=== PATIENT | female | born 1935 | race Caucasian/White ===

== ENCOUNTER 2016-10-16 14:39 | Observation (INO) | payer MEDICARE, OTHER ==
[2016-10-16 15:52] LABS: Troponin I 0.02 ng/mL (<0.04)
[2016-10-16 15:54] LABS: B Type Natriuretic Peptide 447 pg/mL
[2016-10-16 15:58] LABS: Ammonia 43 mol/L (16-53); TSH (Thyroid Stimulating Horm) 6.78 mcIU/mL (0.34-5.60)
[2016-10-16 15:59] LABS: Albumin 3.7 g/dL (3.2-5.2); BUN/Creatinine Ratio 28.3 (8-20); EGFR African American 33.9 (>60); EGFR Non-African American 26.3 (>60); Globulin 2.7 g/dL (2-4); Magnesium 2.4 mg/dL (1.9-2.7); Total Bilirubin 0.3 mg/dL (0.2-1.0); Total Protein 6.4 g/dL (6.4-8.9)
[2016-10-16] MEDS ORDERED: NS 0.9% 1000 ML* 1,000 ML IV ONE (16:00)
--- NOTE | 2016-10-16 16:02 | RAD ---
HISTORY: Syncope COMPARISONS: December 05, 2012 VIEWS: 2: Frontal and lateral views of the chest. FINDINGS: CARDIOMEDIASTINAL SILHOUETTE: The cardiomediastinal silhouette is normal. CASTRO: The castro are normal. PLEURA: The costophrenic angles are sharp. No pleural abnormalities are noted. LUNG PARENCHYMA: The lungs are clear. ABDOMEN: The upper abdomen is clear. There is no subphrenic gas. BONES AND SOFT TISSUES: Degenerative changes are noted along the spine. OTHER: A right-sided pacemaker is noted IMPRESSION: NO ACTIVE CARDIOPULMONARY DISEASE.
[2016-10-16 16:19] LABS: Hematocrit 38 % (35-47); Hemoglobin 12.2 g/dl (12.0-16.0); Mean Corpuscular HGB Conc 33 g/dl (31-36); Mean Corpuscular Hemoglobin 28 pg (27-31); Mean Corpuscular Volume 87 fL (80-97); Mean Platelet Volume 12 um3 (7.4-10.4); Red Blood Count 4.34 10^6/ul (4.0-5.4); Red Cell Distribution Width 15 % (10.5-15); White Blood Count 7.5 10^3/ul (3.5-10.8)
[2016-10-16 16:49] LABS: Potassium 5.2 mmol/L (3.5-5.0)
[2016-10-16 16:52] LABS: Urine Bacteria Absent (Absent); Urine Bilirubin Negative (Negative); Urine Glucose Negative (Negative); Urine Nitrite Negative (Negative)
--- NOTE | 2016-10-16 16:55 | RAD ---
INDICATION: Syncope. COMPARISON: There are no prior studies available for comparison. TECHNIQUE: Contiguous axial sections of the brain were obtained from the skull base to the vertex without contrast. FINDINGS: The ventricles, cisterns and sulci are enlarged consistent with diffuse atrophy. No significant focal abnormality or mass effect is seen. There is no evidence for hemorrhage. No significant focal osseous abnormality is seen. The visualized portion of the paranasal sinuses and mastoid air cells appear clear. IMPRESSION: NO EVIDENCE FOR ACUTE INTRACRANIAL ABNORMALITY.
[2016-10-16] MEDS ORDERED: CMCS: Melatonin (NF) 3 MG TAB PO PRN (18:21)
[2016-10-16] MEDS ORDERED: NS 0.9% 1000 ML* 1,000 ML IV SCH (18:45)
[2016-10-16 19:33] LABS: Free T3 2.4 pg/mL (2.5-3.9)
[2016-10-16 19:34] LABS: Free T4 0.74 ng/dL (0.61-1.12)
[2016-10-16] MEDS: rOPINIRole TAB* 1 MG PO SCH (21:31)
[2016-10-16] MEDS: Metoprolol Tartrate TAB* 25 MG PO SCH (21:32)
[2016-10-16] MEDS: Heparin VIAL(*) 5000 UNITS/ML VIAL (FIVE THOUSAND) SUBCUT SCH (21:33)
--- NOTE | 2016-10-16 21:36 | HP ---
HISTORY AND PHYSICAL:* ADDENDUM: Mrs. Tsai is an 81-year-old female with history of chronic renal insufficiency, status post pacemaker placement who presented to the hospital after a syncopal episode at her doctor's office. The patient is going to be placed on overnight observation. The patient also had significant orthostatic hypotension at admission. She is going to be placed on intravenous fluids and her blood pressure medications are going to be adjusted. For further details of the patient's presentation and plan, please history and physical dictated by Bailey Rodriguez on 10/16/16 with which I agree. [id number]/CPS #: [id number] MTDD
--- NOTE | 2016-10-16 22:09 | HP ---
ATTENDING PHYSICIAN ADDENDUM NOW INCLUDED ON THIS REPORT CC: Jason Del Rio DO * HISTORY AND PHYSICAL: DATE OF ADMISSION: 10/16/16 PRIMARY CARE PROVIDER: Jason Del Rio DO ATTENDING PHYSICIAN: Alexandra Pope MD *(dictated by Lacho Bates NP). CHIEF COMPLAINT: "I fainted." HISTORY OF PRESENT ILLNESS: Ms. Tsai is an 81-year-old female with past medical history significant for CAD, hypertension, GERD, chronic kidney disease , restless leg syndrome, lymphoma, lymphedema, and history of syncope, status post pacemaker placement, who reports that she has passed out each day for the last 4 days and she has been passing out intermittently over the last few months. The patient states that she gets a funny felling and then this turns into a dizziness, she tries to sit down as soon as possible. She states this is similar to prior to having her pacemaker placed in 2016. The patient denies any fever, chills, chest pain, cough, shortness of breath, nausea, vomiting, diarrhea. The patient denies any urinary symptoms. The patient reports a right anterior cervical lymph node enlargement. She states that it has decreased in size since she was given antibiotics a couple of months ago. Ms. Tsai reports that she was at Dr. Del Rio's office today to establish care after recently moving to the area from [place]. She reports that she passed out in the doctors office today. There was also concern of possible ST elevation on her EKG, but she is atrial paced. It is to note that the patient reports ambulating a few feet prior to getting lightheaded, pale, shortness of breath, and fainting. Due to the patient passing out while in her primary care provider's office and the possibility of ST elevation on her EKG, she was sent to the emergency room for further evaluation of her symptoms. While in the emergency room, the patient had orthostatic vital signs and was found to be orthostatic. The patient received a liter of normal saline. She had labs that were significant for a potassium of 5.2, creatinine 1.84, BUN 52. The patient had a TSH of 6.78. She had EKG that shows an A-paced rhythm. She had a troponin of 0.02. The patient had a chest x-ray showing no active cardiopulmonary disease and a head CT showing no acute intracranial abnormalities. The hospitalists were asked to evaluate the patient for admission. PAST MEDICAL HISTORY: 1. Overactive bladder. 2. Coronary artery disease. 3. Hypertension. 4. GERD. 5. Chronic kidney disease, stage 3. 6. Restless leg syndrome. 7. Lymphoma. 8. Syncope. 9. History of lymphedema. PAST SURGICAL HISTORY: 1. Status post pacemaker insertion x2 in 2016. 2. Status post bladder surgery many years ago. HOME MEDICATIONS: Include: 1. Metoprolol tartrate 25 mg oral twice daily. 2. Milk of magnesia 30 mL oral daily as needed for constipation. 3. Ergocalciferol 50,000 units oral weekly. 4. ReQuip 2 mg oral twice daily. 5. Paricalcitol 1 mcg oral on Wednesdays. 6. Protonix 40 mg oral daily. 7. Oxybutynin XL 10 mg oral every morning. 8. Effexor ER 150 mg oral every morning. 9. Atorvastatin 20 mg oral every evening. 10. Percocet 10/325 one tablet oral every 6 hours as needed for pain. 11. Multivitamin 1 tablet oral daily. 12. Melatonin 6 mg oral daily at bedtime as needed for insomnia. 13. Magnesium oxide 500 mg oral every morning. 14. Aspirin 81 mg oral daily. 15. Amlodipine 5 mg oral daily. ALLERGIES: PENICILLIN, SULFA. FAMILY HISTORY: The patient's mother passed in her 80s from heart disease, also had a history of diabetes mellitus. The patient had a brother who passed of an unknown cancer and a sister with a history of breast cancer. SOCIAL HISTORY: The patient denies alcohol, tobacco, or recreational drug use. She recently moved to the area from [place] to be close to her children. She is retired. Her daughter, Jamee Kinney, will be her surrogate decision maker in the event she is unable to make decisions for herself. REVIEW OF SYSTEMS: I performed a 14-point review of systems. All the pertinent positives and negatives are mentioned in the history of present illness. Remaining review of systems are negative. PHYSICAL EXAMINATION GENERAL APPEARANCE: The patient is alert, pleasant, appears to be in no acute distress. VITAL SIGNS: Temperature 97.4, heart rate 60, respiratory rate 14, O2 sat 97% on room air, blood pressure 146/92. HEENT: Normocephalic, atraumatic. Pupils are equal and reactive to light. Extraocular movements are intact. The patient has a 2 to 3-cm enlarged lymph node in the right anterior neck cervical neck chain. RESPIRATORY: There is no accessory muscle use and lungs are clear to auscultation bilaterally. CARDIOVASCULAR: Regular rate and rhythm. S1 and S2 present. There are no murmurs, rubs, or gallops. ABDOMEN: Soft, nontender, nondistended. There are bowel sounds present x4. EXTREMITIES: There is no lower extremity edema. DP and PT pulses are 2+ and symmetric. MUSCULOSKELETAL: There is no clubbing or cyanosis noted. The patient exhibits good strength in all extremities. NEUROLOGIC: The patient is alert and oriented x4. Cranial nerves II through XII are grossly intact. PSYCHOLOGICAL: The patient is calm and cooperative. SKIN: There are no rashes or abnormalities seen. DIAGNOSTIC STUDIES/LAB DATA: Sodium 137, potassium 5.2, chloride 99, CO2 32, BUN 52, creatinine 1.84, glucose 84. White blood cell count 7.5, hemoglobin 12.2, hematocrit 38, and platelet count 161,000. Troponin 0.02. BNP 447. TSH 6.78. Magnesium 2.24. EKG shows A-paced rhythm and a rate of 60. There are no previous EKGs for comparison. 1. Chest x-ray from today. Radiologist's impression: No active cardiopulmonary disease. 2. Brain CT from today. No acute intracranial abnormalities. IMPRESSION: Ms. Tsai is an 81-year-old female with past medical history significant for overactive bladder, coronary artery disease, hypertension, gastroesophageal reflux disease, chronic kidney disease, restless leg syndrome, lymphoma, syncope, and lymphedema, who presents to the emergency room after a syncopal episode at her primary care doctor's office today. She will be admitted as an observation for syncope. ASSESSMENT: 1. Syncope. I suspect this is secondary to orthostatic vital signs. We will hold the patient's amlodipine and decrease her metoprolol to 12.5 twice daily. We will recheck orthostatic vital signs in the morning after she receives a total of 2 L of IV fluids. We should consider starting the patient on Florinef if she continues to be orthostatic. We will ask Cardiology to interrogate the patient's pacemaker in the morning. 2. Hyperkalemia. We will recheck the patient's labs in the morning; for now, we will just let her potassium float down on its own. 3. Hypertension. We will hold the patient's amlodipine, but continue her metoprolol at a lower dose. 4. Coronary artery disease. We will continue the patient on her aspirin, statin, metoprolol. She has been set up with a followup appointment with Dr. Del Rio's office for Dr. Johns in a week. 5. Overactive bladder. The patient will be continued on her home oxybutynin. 6. Restless leg syndrome. The patient will be continued on her home ReQuip. 7. Chronic kidney disease. The patient has been set up with her primary care provider for a followup outpatient appointment with Dr. Pierce. Continue the patient's Zemplar, which she takes weekly on Wednesdays. 8. History of lymphoma. The patient has been set up with an outpatient appointment with Dr. Guzman by her primary care provider. 9. Hypothyroidism. The patient is not currently on medications. Her TSH today is 6.78. We will check a free T3 and T4 and start Synthroid accordingly. 10. Fluids, electrolytes, and nutrition. The patient will be on a heart- healthy diet. 11. Code status. Full code. 12. DVT prophylaxis. The patient is a high risk and will be on subcu heparin. 13. Disposition. Observation. TIME SPENT: Time for this admission was approximately 60 minutes, greater than half of that was spent with the patient discussing medications, past medical history, events leading up to her arrival today, and performing a physical examination. The case has been reviewed with attending, Dr. Pope, who agrees with the plan of care. Reviewed by LACHO BATES, MINER PLACER-C [id number] ADDENDUM: Mrs. Tsai is an 81-year-old female with history of chronic renal insufficiency, status post pacemaker placement who presented to the hospital after a syncopal episode at her doctor's office. The patient is going to be placed on overnight observation. The patient also had significant orthostatic hypotension at admission. She is going to be placed on intravenous fluids and her blood pressure medications are going to be adjusted. For further details of the patient's presentation and plan, please history and physical dictated by Lacho Bates on 10/16/16 with which I agree. ALEXANDRA POPE MD [id number]/CPS #: [id number]/CPS #: [id number] SY
[2016-10-17] MEDS ORDERED: hydrALAZINE IV* 20 MG/ML VIAL IV SLOW PU ONE (03:21)
[2016-10-17 05:18] LABS: BUN/Creatinine Ratio 27.2 (8-20); Calcium 9.5 mg/dL (8.6-10.3); EGFR African American 34.7 (>60); Potassium 4.7 mmol/L (3.5-5.0)
[2016-10-17] MEDS: Heparin VIAL(*) 5000 UNITS/ML VIAL (FIVE THOUSAND) SUBCUT SCH ×2 (05:43→14:25)
[2016-10-17] MEDS ORDERED: Acetaminophen TAB* 325 MG PO PRN (05:48)
[2016-10-17] MEDS: Metoprolol Tartrate TAB* 25 MG PO SCH (08:37)
[2016-10-17] MEDS: rOPINIRole TAB* 1 MG PO SCH (08:41)
[2016-10-17] MEDS ORDERED: Oxybutynin XL TAB* 5 MG PO SCH (09:00)
[2016-10-17] MEDS ORDERED: Venlafaxine EXT RELEASE CAP* 75 MG PO SCH (09:00)
[2016-10-17] MEDS ORDERED: Aspirin EC Low Dose* 81 MG TAB.EC PO SCH (09:00)
[2016-10-17] MEDS ORDERED: Metoprolol Tartrate TAB* 25 MG PO SCH ×2 (09:00)
[2016-10-17] MEDS ORDERED: Omeprazole CAP* 20 MG PO SCH (09:00)
[2016-10-17] MEDS ORDERED: Multivitamins/Minerals TAB PO SCH (09:00)
[2016-10-17] MEDS ORDERED: Magnesium Oxide TAB* 400 MG PO SCH (09:00)
--- NOTE | 2016-10-17 15:13 | RAD ---
HISTORY: Syncope COMPARISONS: None TECHNIQUE: Multiple transverse and longitudinal ultrasound images were obtained of the carotid and vertebral arteries bilaterally, using grayscale, color Doppler, and spectral Doppler imaging. FINDINGS: Measurement of carotid stenosis is based on flow velocity parameters that correlate the residual internal carotid artery diameter with [place] Symptomatic Carotid Endarterectomy Trial (NASCET)-based stenosis levels. RIGHT: Intima: There is diffuse intimal thickening with more focal atheroma formation at the bifurcation. Velocities: Right internal carotid artery maximum peak systolic velocity: 71 cm/s Right common carotid artery maximum peak systolic velocity: 87 cm/s Right internal carotid artery/common carotid artery ratio: 0.7 Waveforms: There is no spectral broadening. Right Vertebral: The right vertebral artery flow is antegrade. LEFT: Intima: There is diffuse intimal thickening with more focal atheroma formation at the bifurcation. Velocities: Left internal carotid artery maximum peak systolic velocity: 68 cm/s Left common carotid artery maximum peak systolic velocity: 73 cm/s Left internal carotid artery/common carotid artery ratio: 1.2 Waveforms: There is no spectral broadening. Left Vertebral: The left vertebral artery flow is antegrade. OTHER FINDINGS: None. IMPRESSION: 1. NO HEMODYNAMICALLY SIGNIFICANT STENOSIS OF THE RIGHT INTERNAL CAROTID ARTERY BY FLOW VELOCITY MEASUREMENTS. THIS CORRESPONDS TO A LUMINAL DIAMETER OF LESS THAN 50% STENOSIS BY NASCET CRITERIA. 2. NO HEMODYNAMICALLY SIGNIFICANT STENOSIS OF THE LEFT INTERNAL CAROTID ARTERY BY FLOW VELOCITY MEASUREMENTS. THIS CORRESPONDS TO A LUMINAL DIAMETER OF LESS THAN 50% STENOSIS BY NASCET CRITERIA. CPT II Codes: 3100F
[2016-10-17 17:08] VITALS: BP 141/81
[2016-10-17] MEDS ORDERED: Atorvastatin* 20 MG TAB PO SCH (18:00)
--- NOTE | 2016-10-17 18:22 | ED ---
Estefany Arana Rebecca, scribed for Shaun Cruz MD on 10/16/16 at 1515 . HPI Chest Pain - HPI Summary HPI Summary: Pt is an 81 y/o F who presents to ED after being referred by Dr. Patiño. She had presented to Dr. Patiño for chest pain that began at 0700 and he referred her to [facility] after seeing suspected ST elevations on an EKG. Pt reports she is currently not experiencing any CP. Additionally notes episodes of syncope with positive LOC. Reports 5-6 episodes of such symptoms in the past 2 weeks with the msot recent being this morning while at the doctor's office. Sx aggravated by standing up, alleviated by nothing. Currently has no complaints at this time including ROCK and dizziness. Pt is visiting the area from [place]. - History of Current Complaint Chief Complaint: EDChestPainROMI Time Seen by Provider: 10/16/16 15:08 Hx Obtained From: Patient Onset/Duration: Started Hours Ago, Resolved Time of Onset: 07:00 Current Severity: None Pain Intensity: 0 Pain Scale Used: 0-10 Numeric Aggravating Factor(s): Other: - Standing up Alleviating Factor(s): Nothing Associated Signs and Symptoms: Positive: Syncope - 5-6 episodes of syncope with the msot recent being this morning. Negative: Dizziness - Allergy/Home Medications Allergies/Adverse Reactions: Allergies Allergy/AdvReac Type Severity Reaction Status Date / Time Penicillins Allergy Severe Rash Verified 10/16/16 14:40 Sulfa Drugs Allergy Severe Rash Verified 10/16/16 14:40 Home Medications: Home Medications Aspirin EC Low Dose* [Ecotrin EC Low Dose 81 MG*] 81 mg PO DAILY 10/16/16 [ History Confirmed 10/16/16] Atorvastatin* [Lipitor*] 20 mg PO QPM 10/16/16 [History Confirmed 10/16/16] Ergocalciferol CAP* [Drisdol CAP*] 50,000 unit PO WEEKLY 10/16/16 [History Confirmed 10/16/16] Magnesium Hydroxide LIQ* [Milk of Magnesia LIQ*] 30 ml PO DAILY PRN 10/16/16 [ History Confirmed 10/16/16] Magnesium Oxide (mg Supplement [Magnesium Oxide] 500 mg PO QAM 10/16/16 [ History Confirmed 10/16/16] Melatonin (NF) [Meladox] 6 mg PO BEDTIME PRN 10/16/16 [History Confirmed ] Metoprolol Tartrate TAB* [Lopressor TAB*] 25 mg PO QAM 10/16/16 [History Confirmed 10/16/16] Multivitamins/Minerals TAB* [Theragran/minerals TAB*] 1 tab PO DAILY 10/16/16 [ History Confirmed 10/16/16] Oxybutynin XL TAB* [Ditropan Xl TAB*] 10 mg PO QAM 10/16/16 [History Confirmed 10/16/16] Pantoprazole TAB (NF) [Protonix TAB (NF)] 40 mg PO DAILY 10/16/16 [History Confirmed 10/16/16] Paricalcitol CAP(NF) [Zemplar CAP(NF)] 1 mcg PO WE 10/16/16 [History Confirmed 10/16/16] Venlafaxine ER (NF) [Effexor ER (NF)] 150 mg PO QAM 10/16/16 [History Confirmed 10/16/16] amLODIPine TAB* [Norvasc 5 mg TAB*] 5 mg PO DAILY 10/16/16 [History Confirmed ] oxyCODONE/Acetamin 10/325(NF) [Percocet 10/325 (NF)] 1 tab PO Q6HR PRN 10/16/16 [History Confirmed 10/16/16] rOPINIRole TAB* [Requip TAB*] 2 mg PO BID 10/16/16 [History Confirmed 10/16/16] PMH/Surg Hx/FS Hx/Imm Hx Endocrine/Hematology History: Denies: Hx Diabetes, Hx Thyroid Disease Cardiovascular History: Reports: Hx Hypertension Respiratory History: Denies: Hx Asthma, Hx Chronic Obstructive Pulmonary Disease (COPD) GI History: Reports: Hx Gastroesophageal Reflux Disease, Hx Ulcer Neurological History: Reports: Hx Transient Ischemic Attacks (TIA) Psychiatric History: Reports: Hx Depression - Cancer History Cancer Type, Location and Year: lymphoma - Surgical History Surgery Procedure, Year, and Place: [facility] Infectious Disease History: No Infectious Disease History: Denies: Hx Clostridium Difficile, Hx Hepatitis, Hx Human Immunodeficiency Virus (HIV), Hx of Known/Suspected MRSA, Hx Shingles, Hx Tuberculosis, Traveled Outside the [place] in Last 30 Days - Family History Known Family History: Positive: Cardiac Disease, Diabetes - Social History Alcohol Use: None Substance Use Type: Reports: None Smoking Status (MU): Never Smoked Tobacco Review of Systems Positive: Chest Pain - Earlier today - resolved Neurological: Other - Negative dizziness Positive: Syncope - 5-6 episodes of syncope, most recent this morning - resolved. Negative: Headache All Other Systems Reviewed And Are Negative: Yes Physical Exam - Summary Physical Exam Summary: VITAL SIGNS: Reviewed. GENERAL: ~Patient is a well-developed and nourished female who is lying comfortable in the stretcher. ~Patient is not in any acute respiratory distress. HEAD AND FACE: No signs of trauma. ~No ecchymosis, hematomas or skull depressions. No sinus tenderness. EYES: PERRLA, EOMI x 2, No injected conjunctiva, no nystagmus. EARS: Hearing grossly intact. Ear canals and tympanic membranes are within normal limits. MOUTH: Oropharynx within normal limits. NECK: Supple, trachea is midline, no adenopathy, no JVD, no carotid bruit, no c- spine tenderness, neck with full ROM. CHEST: Symmetric, no tenderness at palpation LUNGS: Clear to auscultation bilaterally. No wheezing or crackles. CVS: Regular rate and rhythm, S1 and S2 present, no murmurs or gallops appreciated. ABDOMEN: Soft, non-tender. No signs of distention. No rebound no guarding, and no masses palpated. Bowel sounds are normal. EXTREMITIES: FROM in all major joints, no edema, no cyanosis or clubbing. NEURO: Alert and oriented x 3. No acute neurological deficits. Speech is normal and follows commands. SKIN: Dry and warm Triage Information Reviewed: Yes Vital Signs On Initial Exam: Initial Vitals Temp Pulse Resp BP Pulse Ox 97.6 F 60 18 102/61 97 10/16/16 14:40 10/16/16 14:40 10/16/16 14:40 10/16/16 14:40 10/16/16 14:40 Vital Signs Reviewed: Yes - Mj Coma Scale Best Eye Response: 4 - Spontaneous Best Motor Response: 6 - Obeys Commands Best Verbal Response: 5 - Oriented Coma Scale Total: 15 Diagnostics - Vital Signs Vital Signs Temp Pulse Resp BP Pulse Ox 10/16/16 14:54 97.6 F 60 18 102/61 97 10/16/16 14:40 97.6 F 60 18 102/61 97 - Laboratory Result Diagrams: 10/16/16 15:10 10/16/16 15:10 Lab Statement: Any lab studies that have been ordered have been reviewed, and results considered in the medical decision making process. - Radiology CXR Xray Interpretation: No Acute Changes - NO ACTIVE CARDIOPULMONARY DISEASE. Radiology Interpretation Completed By: Radiologist - CT Brain CT CT Interpretation: No Acute Changes - NO EVIDENCE FOR ACUTE INTRACRANIAL ABNORMALITY. CT Interpretation Completed By: Radiologist - EKG 1451 Cardiac Rate: NL - 60 bpm EKG Interpretation: Atrial-paced Rhythm; ST depression in I, AvL, V4-V6 Chest Pain Course/Dx - Course Assessment/Plan: Pt is an 81 y/o F who presents to ED after being referred by Dr. Patiño. She had presented to Dr. Patiño for chest pain that began at 0700 and he referred her to [facility] after seeing suspected ST elevations on an EKG. Pt reports she is currently not experiencing any CP. Additionally notes episodes of syncope with positive LOC. Reports 5-6 episodes of such symptoms in the past 2 weeks with the msot recent being this morning while at the doctor's office. Sx aggravated by standing up, alleviated by nothing. Currently has no complaints at this time including ROCK and dizziness. Pt is visiting the area from [place]. Test results w/o any sig abnormality except for potassium of 5.2 which is slightly elevated, BUN of 52, creatinine of 1.84, BNP of 447 and UA is contaminated therefore we will send the urine for cultures. Brain CT reveals NO EVIDENCE FOR ACUTE INTRACRANIAL ABNORMALITY, EKG is atrial paced rhythm with ST depression in lead I, aVL and V4-V6, CXR reveals NO ACTIVE CARDIOPULMONARY DISEASE. Thep t was given IV fluids, seeing as the pts orthostatic vital signs were positive. Since the pt has had multiple syncopal episodes I disclosed my PE and findings with Dr. Adhikari who accepted patient for admission. Pt is hemodynamically stable and A&ox3. - Diagnoses Provider Diagnoses: Syncope - Provider Notifications Discussed Care Of Patient With: Cassi Adhikari Time Discussed With Above Provider: 18:04 Instructed by Provider To: Other - Pt was accepted for admission. Discharge - Discharge Plan Condition: Stable Disposition: ADMITTED TO [facility] Referrals: Non Staff,Doctor [Primary Care Provider] - The documentation as recorded by the Estefany muro Rebecca accurately reflects the service I personally performed and the decisions made by me, Shaun Cruz MD.
--- NOTE | 2016-10-17 18:44 | ECHO ---
Patient: MICHAEL PIRES [facility] Rec#: [id number] : 1935 Date: 10/17/2016 Age: 81y Height: 165.1 cm / 65.0 in Weight: 63.5 kg / 140.0 lbs Sex: F BSA: 1.7 Room#: 444 Admit Date#: 10/16/2016 Type: Inpatient Referring: Alexandra Pope MD Reading: Víctor Novoa MD [employer] Supervisor: Priscila Shaikh JAJA CC: Quang ROSA,Jason Transthoracic Echocardiogram Indication: Syncope BP: 108/59 HR: 66 Rhythm: NSR Findings History: CAD,HTN,GERD,CKD stageIII,lymphoma,S/P pacer insert,syncope. Technical Comments: The study quality is good. Completed at 1435. Left Ventricle: The left ventricular chamber size is normal. Moderate concentric left ventricular hypertrophy is observed. There is normal left ventricular systolic function. The estimated ejection fraction is 55-60%. The assessment of diastolic function is non-diagnostic. Left Atrium: The left atrial chamber size is normal. Right Ventricle: The right ventricular cavity size is normal. The right ventricular global systolic function is normal. A pacemaker wire is visualized in the right ventricle. Right Atrium: The right atrial cavity size is normal. A pacemaker wire is visualized in the right atrium. Aortic Valve: The aortic valve is trileaflet. There is mild to moderate aortic regurgitation. There is no evidence of aortic stenosis. Mitral Valve: The mitral valve leaflets are mildly thickened. There is a trace of mitral regurgitation. There is no evidence of mitral stenosis. Tricuspid Valve: The tricuspid valve leaflets are normal. There is no evidence of tricuspid valve regurgitation. Unable to estimate the right ventricular systolic pressure. There is no tricuspid stenosis. Pulmonic Valve: The pulmonic valve appears normal. There is no evidence of pulmonic regurgitation. There is no pulmonic stenosis. Pericardium: The pericardium appears normal. Aorta: There is no dilatation of the ascending aorta. There is no dilatation of the aortic arch. There is no dilation of the aortic root. Pulmonary Artery: The main pulmonary artery appears normal. Venous: The venous system appears normal. The inferior vena cava appears normal in size. There is a greater than 50% respiratory change in the inferior vena cava dimension. Summary: There was not any prior study for comparison. Conclusions The left ventricular chamber size is normal. Moderate concentric left ventricular hypertrophy is observed. The estimated ejection fraction is 55-60%. A pacemaker wire is visualized in the right ventricle. A pacemaker wire is visualized in the right atrium. There is mild to moderate aortic regurgitation. There is a trace of mitral regurgitation. Measurements Name Value Normal Range RVIDd (AP) 2D 2.5 cm (0.9 - 2.6) RVDdMajor (2D) 3.5 cm (2.2 - 4.4) RAd ISD 4CH 4.2 cm (3.4 - 4.9) RA (A4C)W 3.6 cm (2.9 - 4.6) IVSd (2D) 1.4 cm (0.6 - 1) LVPWd (2D) 1.4 cm (0.6 - 1) LVIDd (2D) 4.1 cm (3.6 - 5.4) LVIDs (2D) 2.8 cm - LV FS (2D) 32 % (25 - 45) Aortic Annulus 2 cm (1.4 - 2.6) Ao root diameter (2D) 3.5 cm (2.1 - 3.5) Ascending Ao 3.1 cm (2.1 - 3.4) Aortic arch 2.5 cm (1.8 - 3.4) Descending Ao 0.6 cm - LA dimension (AP) 2D 3.4 cm (2.3 - 3.8) LAd ISD 4CH 4.3 cm (2.9 - 5.3) LA ISD 4CH W 3.2 cm (2.5 - 4.5) Name Value Normal Range LA ESV SP 4CH (A/L) 23 ml - LA ESV SP 2CH (A/L) 53 ml - LA ESV BP (A/L) 40 ml - LA ESV BP (A/L) index 23.52 ml/m2 - LA ESV SP 4CH (MOD) 23 ml - LA ESV SP 2CH (MOD) 47 ml - Name Value Normal Range MV E-wave Vmax 0.5 m/sec - MV deceleration time 240 msec - MV A-wave Vmax 1 m/sec - MV E:A ratio 0.52 ratio - LV septal e' Vmax 0.02 m/sec - LV lateral e' Vmax 0.03 m/sec - Name Value Normal Range AV Vmax 1.4 m/sec - AV VTI 28 cm - AV peak gradient 8.13 mmHg - AV mean gradient 4.27 mmHg - LVOT Vmax 1.04 m/sec - LVOT VTI 18.8 cm - LVOT peak gradient 4.36 mmHg - LVOT mean gradient 1.77 mmHg - AR PHT 669 msec - AR peak gradient 88.32 mmHg - Name Value Normal Range TR Vmax 2.4 m/sec - TR peak gradient 23 mmHg - RAP 3 mmHg - RVSP 26 mmHg - IVC diameter 1.1 cm - Name Value Normal Range PV Vmax 0.6 m/sec - PV peak gradient 1.54 mmHg -
--- NOTE | 2016-10-18 05:35 | DS ---
CC: Dr. Donnie Johns; Dr. Pierce; Dr. Del Rio; Dr. Guzman * DISCHARGE SUMMARY: DATE OF ADMISSION: 10/16/16 DATE OF DISCHARGE: 10/17/16 PRIMARY CARE PROVIDER: Dr. Del Rio. ADMISSION DIAGNOSES: 1. Syncope due to orthostatic hypotension. 2. New diagnosis of hypothyroidism. SECONDARY DIAGNOSES: 1. History of recurrent syncope. 2. History of pacemaker placement. 3. History of lymphoma in 1987. 4. History of chronic kidney disease, stage 3. 5. History of coronary artery disease. 6. Hypertension. 7. Gastroesophageal reflux disease 8. Restless legs syndrome. 9. History of reactive bladder. MEDICATIONS AT DISCHARGE: Include: 1. Synthroid 25 mcg daily. 2. Aspirin 81 mg daily. 3. Lipitor 20 mg daily. 4. Ergocalciferol 50,000 units weekly. 5. Milk of magnesia 30 mL daily p.r.n. 6. Mag-Ox 500 mg daily. 7. Melatonin 6 mg at bedtime. 8. Metoprolol tartrate 25 mg b.i.d. 9. Ditropan XL 10 mg daily. 10. Multivitamin 1 tablet daily. 11. Protonix 40 mg daily. 12. Zemplar 1 mcg weekly. 13. Effexor ER 150 mg daily. 14. Hydrocodone/acetaminophen 10/325 mg on a p.r.n. basis. 15. Requip 2 mg p.o. b.i.d. Of the patient's medications the changes are noted that Synthroid was started during the hospital stay for new-onset hypothyroidism. Her Norvasc was discontinued allowing the patient to be mildly hypertensive due to orthostatic hypotension. LABORATORY DATA AND STUDIES PERFORMED DURING THE HOSPITAL STAY: Included: On 10/16/16, white blood cell count of 7.5, hemoglobin of 12.2, hematocrit of 38, and platelets of 161. On 10/17/16, sodium was 139, potassium 4.7, chloride 103 , carbon dioxide 29, BUN 49, creatinine 1.8. Brain natriuretic peptide was 447. TSH total of 6.78, free T4 of 0.74, free T3 of 2.4. Urinalysis: +3 esterase, +3 white blood cells, no bacteria. The urine cultures are pending at the time of dictation. Carotid Doppler study noted on 10/17/16, impression: "No hemodynamically significant stenosis of the bilateral internal carotid arteries by flow velocity measurements. There is a correspondence to a luminal diameter of less than 50% stenosis." The patient has a transthoracic echocardiogram during the hospital stay, but the reports are still pending. Brain CT obtained on 10/16/16, impression "no evidence of acute intracranial abnormality." HOSPITALIZATION COURSE: Domitila Tsai is an 81-year-old female, who used to live in [facility], then she moved to [place] and she came back within the past couple of months to live in with her son in [place]. She was seen by Dr. Del Rio for her first visit after her coming back to the area from [place] and she had an episode of syncope. The patient's family was also concerned about syncopal episodes in the past. From my review of medical records dating back to [address] Garcia saw the patient for syncope and diagnosed with orthostatic syncope with normal cortisol levels. The patient herself stated that it is unusual for her not to be fainting 2 days in a row. She stated that prior to her admission, she actually did not faint for 2 days, which was a surprising. She usually stands up and walks approximately 5 to 10 feet before becoming "limp and collapsing." She states that she usually does not lose consciousness when it happens. She ambulates with a rolled walker. When she came into the hospital, her EKG showed paced rhythm. She was noted to have severe orthostasis with systolic pressures going from 129 when sitting to 79 systolically when standing. The patient's Norvasc was discontinued to allow for the patient to be mildly hypertensive. She also received intravenous hydration. By the time of discharge, her pressure was still mildly orthostatic with a systolic pressure of 140 when lying, 108 when sitting, and 91 when standing. Nevertheless, she was not symptomatic anymore. Once again, I had a long conversation with the patient and provided some counseling in regards to orthostatic hypotension. She may be a candidate in the future for Florinef. I discontinued her Norvasc and continued metoprolol. I recommended for her to get hydrated and take time when she changes position from sitting to standing. I asked the patient to count to 10 when she stands up before starting to walk with a walker. In addition, to the above mentioned, the patient had carotid Dopplers performed , it showed no significant stenosis. Her transthoracic echocardiogram was obtained and the results are still pending. Her pacemaker was reviewed and interrogated and showed no marked arrhythmias. I understand the patient also has followup and referred to Dr. Johns from Cardiology as outpatient and Dr. Pierce from Nephrology due to chronic medical conditions after discharge. The patient's troponin during her hospital stay was 0.02. Her chronic renal insufficiency was at her baseline creatinine of 1.8 to 2. Her TSH was low and her free T3 was also low making the diagnosis of hypothyroidism likely. She was started on low dose of Synthroid supplementation and recommendation is for the patient to have a repeat TSH level performed in 4 to 6 weeks to followup treatment. PHYSICAL EXAMINATION: At discharge, blood pressure of 140/87, heart rate of 60 and regular, respiratory rate of 20, oxygen saturation 94% on room air, temperature 97.3. General: The patient is a very pleasant 81-year-old female, who is in no acute distress. Alert, awake, and oriented x3. HEENT: Head atraumatic, normocephalic. Eyes: Pupils equal, round, and reactive to light and accommodation. Oropharynx clear. Mucosa moist. Neck: Supple. No JVD. No bruits bilaterally. Cardiovascular: Regular rate and rhythm. No murmur. Respiratory: Clear to auscultation bilaterally. Abdomen: Soft. Nontender. Bowel sounds are present in all 4 quadrants. Extremities: There is no edema. Pulses +2 bilaterally. There is no clubbing or cyanosis. Neuro Evaluation: Speech clear. Cranial nerves II through XII grossly intact. Motor strength is 5/5 bilaterally. DISCHARGE FOLLOWUP: The patient is recommended to follow up with her primary care provider in approximately 4 to 7 days. The patient is also recommended to keep her appointments with Dr. Johns and Dr. Pierce as she was referred by Dr. Del Rio. Please note that this is a short summary of the patient's hospitalization. Please refer to further medical records for details. [id number]/[facility] #: [id number] MTDD
[2016-10-22] MEDS ORDERED: PARICALCITOL 1 MCG PO SCH (09:00)
== END 2016-10-17 17:11 | disposition home or self-care (01) ==
LOC: ED 14:39 → MEDTELE 18:19
PROVIDERS: ADMIT Internal Medicine; ATTEND Internal Medicine
DX: I95.1 Orthostatic hypotension (principal); E03.9 Hypothyroidism, unspecified; Z95.0 Presence of cardiac pacemaker; Z85.72 Personal history of non-Hodgkin lymphomas; I12.9 Hypertensive chronic kidney disease with stage 1 through stage 4 chronic kidney disease, or unspecified chronic kidney disease; N18.3 Chronic kidney disease, stage 3 (moderate); K21.9 Gastro-esophageal reflux disease without esophagitis; G25.81 Restless legs syndrome; I25.10 Atherosclerotic heart disease of native coronary artery without angina pectoris; Z79.82 Long term (current) use of aspirin; Z88.0 Allergy status to penicillin; Z88.2 Allergy status to sulfonamides
CPT/HCPCS: 36415; 70450; 71020; 80048; 80053; 81003; 81015; 82140; 82550; 83605; 83735; 83880; 84439; 84443; 84481; 84484; 85025; 85610; 85730; 87077; 87086; 87186; 93005; 93306; 93880; 99283; A9270-GY; G0378; J0360; J1644

== ENCOUNTER 2019-03-22 19:44 | Emergency (ER) | payer MEDICARE ==
[2019-03-22] MEDS ORDERED: NS 0.9% 1000 ML** 1,000 ML IV ONE (20:15)
--- NOTE | 2019-03-22 20:24 | ED ---
Dizziness - HPI Summary HPI Summary: Pt is a 84 y/o F presenting to the ED with a chief complaint of dizziness. She states for the past few years shes been experiencing episodes of dizziness that usually come on with standing and/or exertion. Tonight, she was putting some wood in her wood stove, and when she stood up she experienced a severe dizzy spell. She thought she was having a stroke, so she called an ambulance. She also reports shortness of breath and some chest pressure with these spells, and a chronic dry cough. She has not experienced syncope, but has been close to it. - History Of Current Complaint Chief Complaint: EDDizziness Stated Complaint: NEAR SYNCOPE PER EMS Time Seen by Provider: 03/22/19 20:04 Hx Obtained From: Patient Onset/Duration: Resolved, Suddenly Timing: Intermittent Episode Lasting Severity Initially: Moderate Severity Currently: Mild Character: Dizzy Aggravating Factor(s): Exertion, Position Change Alleviating Factor(s): Rest Associated Signs And Symptoms: Positive: Chest Pain, SOB - Allergies/Home Medications Allergies/Adverse Reactions: Allergies Allergy/AdvReac Type Severity Reaction Status Date / Time MS Penicillins [Penicillins] Allergy Severe Rash Verified 10/16/16 14:40 MS Sulfa Drugs [Sulfa Drugs] Allergy Severe Rash Verified 10/16/16 14:40 Home Medications: Home Medications Carvedilol TAB* [Coreg TAB*] 6.25 mg PO BID 03/22/19 [History Confirmed 03/22/19 ] Furosemide TAB* [Lasix TAB*] 20 mg PO MOWEFR 03/22/19 [History Confirmed ] Potassium Chlor TAB* [Klor Con ER TAB*] 10 meq PO MOWEFR 03/22/19 [History Confirmed 03/22/19] Venlafaxine EXT RELEASE CAP* [Effexor Xr CAP*] 150 mg PO DAILY 03/22/19 [ History Confirmed 03/22/19] predniSONE 10 mg TAB [Deltasone 10 MG TAB*] 20 mg PO DAILY 03/22/19 [History Confirmed 03/22/19] PMH/Surg Hx/FS Hx/Imm Hx Previously Healthy: Yes Endocrine/Hematology History: Denies: Hx Diabetes, Hx Thyroid Disease Cardiovascular History: Reports: Hx Hypertension, Hx Pacemaker/ICD Respiratory History: Denies: Hx Asthma, Hx Chronic Obstructive Pulmonary Disease (COPD) GI History: Reports: Hx Gastroesophageal Reflux Disease, Hx Ulcer History: Reports: Other Problems/Disorders - chronic renal insufficiency Musculoskeletal History: Reports: Other Musculoskeletal History - Restless Leg Syndrome Sensory History: Reports: Hx Contacts or Glasses Denies: Hx Hearing Aid Opthamlomology History: Reports: Hx Contacts or Glasses Neurological History: Reports: Hx Transient Ischemic Attacks (TIA) Psychiatric History: Reports: Hx Depression - Cancer History Cancer Type, Location and Year: lymphoma Hx Chemotherapy: Yes Hx Radiation Therapy: Yes - Surgical History Surgery Procedure, Year, and Place: [facility]. app[facility] - Immunization History Immunizations Up to Date: Yes Infectious Disease History: No Infectious Disease History: Denies: Hx Clostridium Difficile, Hx Hepatitis, Hx Human Immunodeficiency Virus (HIV), Hx of Known/Suspected MRSA, Hx Shingles, Hx Tuberculosis, History Other Infectious Disease, Traveled Outside the in Last 30 Days - Family History Known Family History: Positive: Cardiac Disease, Diabetes - Social History Alcohol Use: None Hx Substance Use: No Substance Use Type: Reports: None Hx Tobacco Use: No Smoking Status (MU): Never Smoked Tobacco Review of Systems Positive: Chest Pain Positive: Shortness Of Breath, Cough Neurological: Other - dizziness All Other Systems Reviewed And Are Negative: Yes Physical Exam - Summary Physical Exam Summary: Appearance: Well-appearing, Well-nourished, lying in bed comfortably Skin: Warm, dry, no obvious rash Eyes: sclera anicteric, no conjunctival pallor ENT: mucous membranes moist, pharynx appears normal Neck: Supple, nontender Respiratory: Clear to auscultation, no signs of respiratory distress Cardiovascular: Normal S1, S2. No murmurs. Normal distal pulses in tibial and radial bilaterally. Abdomen: Soft, nontender, normal active bowel sounds present Musculoskeletal: Normal, Strength/ROM Intact Neurological: A&Ox3, awake and alert, mentation is normal, speech is fluent and appropriate Psychiatric: affect is normal, does not appear anxious or depressed Triage Information Reviewed: Yes Vital Signs On Initial Exam: Initial Vitals Temp Pulse Resp BP Pulse Ox 97 F 86 15 153/96 98 03/22/19 19:57 03/22/19 19:57 03/22/19 19:57 03/22/19 19:57 03/22/19 19:57 Vital Signs Reviewed: Yes Procedures - Sedation Patient Received Moderate/Deep Sedation with Procedure: No Diagnostics - Vital Signs Vital Signs Temp Pulse Resp BP Pulse Ox 03/22/19 19:57 97 F 86 15 153/96 98 - Laboratory Result Diagrams: 03/22/19 20:45 03/22/19 20:45 Lab Statement: Any lab studies that have been ordered have been reviewed, and results considered in the medical decision making process. - Radiology CXR Radiology Interpretation Completed By: ED Physician Summary of Radiographic Findings: Cardiomegaly. No acute process. Pending official radiology report. - EKG 2019 Cardiac Rate: NL - 78bpm EKG Rhythm: Sinus Rhythm ST Segment: Normal Ectopy: None Summary of EKG Findings: EKG at 2019 shows atrial paced complexes at 75 BPM with LBBB. Otherwise, P waves, QRS complex, and T waves are within normal limits , T waves and intervals are normal, no ischemic changes. This is a normal EKG. ED physician has reviewed and interpreted this EKG. Dizzy Course/Dx - Course Course Of Treatment: 84 y/o F presents to [facility] with dizziness. She reports chronic episodes of dizziness that come on with standing or exertion. Tonight, she was putting wood in her wood stove and she had a severe dizzy spell. She reports shortness of breath, chest pressure, and a chronic dry cough. She has not experienced syncope. Pt's physical exam is nml. EKG at 2019 shows atrial paced complexes at 75 BPM with LBBB. Otherwise, P waves, QRS complex, and T waves are within normal limits, T waves and intervals are normal, no ischemic changes. This is a normal EKG. ED physician has reviewed and interpreted this EKG. CXR shows cardiomegaly, no acute process, pending official radiology report. Pt will be d/c'ed with dx of near syncope. She is stable and agreeable with this plan. - Diagnoses Provider Diagnoses: Near syncope Discharge ED - Sign-Out/Discharge Documenting (check all that apply): Patient Departure - Discharge Plan Condition: Good Disposition: HOME Patient Education Materials: Near Syncope (ED) Referrals: Yuri Carroll MD [Primary Care Provider] - Additional Instructions: Your lab work looks ok, in particular your kidney function is at your baseline. I'm not sure why this continues to be a problem for you, but we haven't turned up anything serious. Some people are prone to lightheadedness, particularly as you age and also when you exert yourself, so you do need to be careful and move slowly when first getting up from a sitting or lying position. - Billing Disposition and Condition Condition: GOOD Disposition: Home - Attestation Statements Document Initiated by Ron: Yes Documenting Scribe: Shasta Fulton Provider For Whom Ron is Documenting (Include Credential): Lacho Gil MD. Scribe Attestation: IShasta, radhaed for Lacho Gil MD. on 03/23/19 at 0544. Scribe Documentation Reviewed: Yes Provider Attestation: The documentation as recorded by the Shasta muro accurately reflects the service I personally performed and the decisions made by me, Lacho Gil MD. Status of Scribe Document: Viewed
[2019-03-22 20:55] LABS: Hematocrit 38 % (35-47); Mean Corpuscular HGB Conc 35 g/dL (31-36); Mean Corpuscular Hemoglobin 30 pg (27-31); Mean Corpuscular Volume 88 fL (80-97); Mean Platelet Volume 10.3 fL (7.4-10.4); Platelet Count 210 10^3/uL (150-450); Red Blood Count 4.26 10^6 /uL (3.70-4.87); Red Cell Distribution Width 16 % (10-15); White Blood Count 4.6 10^3/uL (3.5-10.8)
[2019-03-22 21:12] LABS: ALT 42 U/L (7-52); AST 29 U/L (13-39); Albumin 3.8 g/dL (3.2-5.2); Albumin/Globulin Ratio 1.7 (1-3); Alkaline Phosphatase 72 U/L (34-104); Anion Gap 10 mmol/L (2-11); BUN/Creatinine Ratio 28.6 (8-20); Blood Urea Nitrogen 57 mg/dL (6-24); CO2 Carbon Dioxide 26 mmol/L (22-32); Calcium 9.2 mg/dL (8.6-10.3); Chloride 103 mmol/L (101-111); EGFR African American 28.9 (>60); EGFR Non-African American 23.9 (>60); Globulin 2.3 g/dL (2-4); Glucose 132 mg/dL (70-100); Magnesium 1.9 mg/dL (1.9-2.7); Sodium 139 mmol/L (135-145); Total Protein 6.1 g/dL (6.4-8.9)
--- OUTSIDE RECORDS SUMMARY | 2019-03-22 21:17 | XMS REPORT | Continuity of Care Document ---
:1935 External Reference #:[id number] Author Name Yani Palomino Care Team Providers Name Role Phone Donnie Johns DO, FACC - Care Team Information Vehicle Glass Technician [phone] Cardiovascular Disease Celestina Rock MD - Internal Medicine Care Team Information Vehicle Glass Technician Problems Active Problems Provider Date Insomnia Jason Del Rio DO Onset: 10/16/2016 Bladder muscle dysfunction - overactive Jasno Del Rio DO Onset: Chronic kidney disease Jason Del Rio DO Onset: 10/16/2016 Gastroesophageal reflux disease Jason Del Rio DO Onset: 10/16/2016 Lymphadenopathy Jason Del Rio DO Onset: 10/16/2016 Cardiac pacemaker in situ Jason Del Rio DO Onset: 10/16/2016 Dyspnea Jason Del Rio DO Onset: 10/16/2016 Syncope and collapse Jason Del Rio DO Onset: 10/16/2016 Localized, primary osteoarthritis Sandra Molina M.D. Onset: 08/20/2018 Aortic valve disorder Donnie Johns DO FACJustin Onset: 09/30/2018 Electrocardiogram abnormal Donnie Johns DO FACJustin Onset: 09/30/2018 Essential hypertension Alexandra Pope M.D. Onset: 09/30/2018 Chronic kidney disease stage 4 Donnie Johns DO FACJustin Onset: 12/03/2018 Resolved Problems Chest pain Donnie Johns DO FACJustin Onset: 09/10/2018 Resolved: 10/06/2018 Carotid artery occlusion Donnie Johns DO FACC Onset: 09/30/2018 Resolved: 10/06/2018 Chronic kidney disease stage 3 Alexandra Pope M.D. Onset: 09/30/2018 Resolved: 12/03/2018 Social History Type Date Description Comments Sex Unknown ETOH Use Denies alcohol use Recreational Drug Use Denies Drug Use Tobacco Use Start: Unknown Patient has never smoked Smoking Status Reviewed: 02/01/19 Patient has never smoked Exercise Type/Frequency Ocassionally Allergies, Adverse Reactions, Alerts Active Allergies Reaction Severity Comments Date Penicillin Hives Hives 10/16/2016 Sulfa 11/07/2016 Tape 09/30/2018 Providone-Iodine 09/30/2018 Penicillin G Potassium 02/01/2019 Sulfa 10 02/01/2019 Medications Active Medications SIG Qnty Indications Ordering Date Provider Midodrine HCL take one by mouth 270tabs I50.22 Donnie S. 12/03/2018 10mg three times daily DO Andreas FACC Tablets Tramadol HCL 1 by mouth up to 60tabs Yuri 10/05/2018 50mg four times a day if MD Glen Tablets needed for pain control. take with a 325 mg acetaminophen each time Carvedilol 1 by mouth twice a 180tabs I50.22 Donnie S. 10/05/2018 6.25mg day DO TRACY Johns Tablets Furosemide take one tablet by 15tabs I50.22 Qutaybeh S. 10/05/2018 20mg mouth thursdayBright M.D. Tablets thursday and thursday Aspirin 1 by mouth every day Unknown 10/15/2016 81mg for coronary artery Tablets disease Atorvastatin 1 tablet by mouth in 90tabs Yuri 04/29/2016 Calcium the evening for high MD [place] 20mg cholesterol Tablets Venlafaxine HCL ER 1 tablet by mouth in 90caps Yuri 04/29/2016 the morning for MD [place] 150mg Caps ER 24HR depression Pantoprazole Sodium 1 tablet by mouth 90tabs K21.9 Yuri 04/29/2016 daily [facility] [place] 40mg Tablets Ropinirole HCL 1 tablet by mouth 180tabs G25.81 Yuri 04/29/2016 2mg every 12 hours as MD Glen Tablets needed for restless legs Dulcolax take 1 tabs by mouth Unknown 5mg as needed Tablets DR One-Daily Multi 1 by mouth every day Unknown Vitamins Tablets History Medications Midodrine HCL 1 by mouth 270tabs I50.22 Donnie Johns, 10/05/2018 - 5mg three times a DO [facility] 12/03/2018 Tablets day Oxycodone-Acetamino 1 tab every 8 90tabs Víctor SBrittany 09/29/2018 - phen hours as needed Norm Novoa 09/29/2018 2.5-325mg for severe pain Tablets Oxycodone-Acetamino 1 po qd v0huxet Qutaurszula S. 09/29/2018 - phen Norm Novoa 10/05/2018 10-325mg Tablets Medications Administered in Office Medication SIG Qnty Indications Ordering Provider Date Inj, Regadenoson, 0.1 MG Donnie Johns, DO [facility] 09/28/2018 Injection Technetium TC 99M Donnie Johns, DO [facility] 09/28/2018 Tetrofosmin, Per Unit Dose Up To 40 Millicuries Injection Technetium TC 99M Donnie Johns, DO [facility] 09/28/2018 Tetrofosmin, Per Unit Dose Up To 40 Millicuries Injection Immunizations CPT Code Status Date Vaccine Reaction Lot # [id number] Given 09/30/2018 Tdap - RISK AND BENEFITS Tdap H54EX private Tetanus/Diptheria/Ac DISCUSSED ellular Pertussis Vital Signs Date Vital Result Comment 02/01/2019 11:10am Height 63.75 inches 5'3.75" Weight 135.00 lb with shoes Heart Rate 74 /min BP Systolic Sitting 110 mmHg Ra BP Diastolic Sitting 76 mmHg Ra BP Systolic Standing 96 mmHg Ra BP Diastolic Standing 66 mmHg Ra O2 % BldC Oximetry 94 % BMI (Body Mass Index) 23.4 kg/m2 Ejection Fraction 30% Echo 09/30/18 12/03/2018 9:08am Height 63.75 inches 5'3.75" Weight 138.00 lb Heart Rate 76 /min BP Systolic Sitting 128 mmHg LA Regular Cuff BP Diastolic Sitting 98 mmHg LA Regular Cuff BP Systolic Standing 86 mmHg LA Regular Cuff BP Diastolic Standing 68 mmHg LA Regular Cuff Respiratory Rate 24 /min no resp difficulties Pain Level 0 O2 % BldC Oximetry 95 % BMI (Body Mass Index) 23.9 kg/m2 Results Test Acquired Date Facility Test Result H/L Range Note Comp Metabolic 10/01/2018 [facility] Sodium 142 mmol/L Normal 135-[address] [place] [address] [phone] Potassium 4.5 mmol/L Normal 3.5-5.0 Chloride 104 mmol/L Normal 101-111 Co2 Carbon Dioxide 30 mmol/L Normal 22-32 Anion Gap 8 mmol/L Normal 2-11 Glucose 86 mg/dL Normal 70-100 Blood Urea Nitrogen 32 mg/dL High 6-24 Creatinine 2.13 mg/dL High 0.51-0.95 BUN/Creatinine Ratio 15.0 Normal 8-20 Calcium 9.8 mg/dL Normal 8.6-10.3 Total Protein 6.6 g/dL Normal 6.4-8.9 Albumin 4.2 g/dL Normal 3.2-5.2 Globulin 2.4 g/dL Normal 2-4 Albumin/Globulin Ratio 1.8 Normal 1-3 Total Bilirubin 0.90 mg/dL Normal 0.2-1.0 Alkaline Phosphatase 82 U/L Normal 34-104 Alt 8 U/L Normal 7-52 Ast 15 U/L Normal 13-39 Egfr Non- 22.1 >60 Egfr 26.8 >60 1 CBC Auto 10/01/2018 [facility] White Blood 7.1 10^3/uL Normal 3.5-10.[address] [place] [address] [phone] Red Blood Count 4.91 10^6/uL High 3.70-4.87 Hemoglobin 13.9 g/dL Normal 12.0-16.0 Hematocrit 42 % Normal 35-47 Mean Corpuscular Volume 85 fL Normal 80-97 Mean Corpuscular Hemoglobin 28 pg Normal 27-31 Mean Corpuscular HGB Conc 33 g/dL Normal 31-36 Red Cell Distribution Width 15 % Normal 10-15 Platelet Count 187 10^3/uL Normal 150-450 Mean Platelet Volume 10.6 fL High 7.4-10.4 Abs Neutrophils 4.6 10^3/uL Normal 1.5-7.7 Abs Lymphocytes 1.9 10^3/uL Normal 1.0-4.8 Abs Monocytes 0.4 10^3/uL Normal 0-0.8 Abs Eosinophils 0.1 10^3/uL Normal 0-0.6 Abs Basophils 0.1 10^3/uL Normal 0-0.2 Abs Nucleated RBC 0.0 10^3/uL Granulocyte % 64.7 % Lymphocyte % 27.1 % Monocyte % 6.0 % Eosinophil % 1.1 % Basophil % 1.1 % Nucleated Red Blood Cells % 0.0 Urine Microalbumin 10/01/2018 [facility] Ur Microalbumin 188.4 mg/L Random (mg/L) [place] [address] [phone] Urine Creatinine 89.19 mg/dL Urine Microalbumin/Creatinine 211.2 High <31 Lipid Profile 10/01/2018 [facility] Triglycerides 156 mg/dL 2 (Trig/Chol/HDL) [place] [address] [phone] Cholesterol 190 mg/dL 3 HDL Cholesterol 57.3 mg/dL 4 LDL Cholesterol 102 mg/dL 5 Laboratory 10/01/2018 [facility] TSH (Thyroid 3.86 Normal 0.34 -5.60 test finding Stim Horm) mcIU/mL [place], [place] [address] [phone] Vitamin D Total 25(Oh) 41.3 ng/mL Normal 20-50 6 Partial Thrombo Time PTT 33.5 seconds Normal 26.0-38.0 Inr/Protime 10/01/2018 [facility] Inr 0.92 Normal 0.82-1.09 7 [place] [address] [phone] Urine Culture And 10/01/2018 [facility] Urine SEE 8 [place]ensit[place] [address] BELOW [phone] Urinalysis 10/01/2018 [facility] [place] [address] [phone] Urine Appearance Clear Urine Specific Sargeant 1.011 Normal 1.010-1.030 Urine pH 6.0 Normal 5-9 Urine Urobilinogen Negative Negative Urine Ketones Negative Negative Urine Protein 1+(30 mg/dL) Abnormal Negative Urine Leukocytes Negative Negative Urine Blood Negative Negative Urine Nitrite Negative Negative Urine Bilirubin Negative Negative Urine Glucose Negative Negative Urine White Blood Cell Trace(0-5/hpf) Absent Urine Red Blood Cell Trace(0-2/hpf) Absent Urine Bacteria Absent Absent Urine Squamous Epithelial Cell Present Abnormal Absent 1 Because ethnic data is not always readily available, this report includes an eGFR for both -Americans and non- Americans. The National Kidney Disease Education Program (NKDEP) does not endorse the use of the MDRD equation for patients that are not between the ages of 18 and 70, are , have extremes of body size, muscle mass, or nutritional status, or are non- or non-. According to the National Kidney Foundation, irrespective of diagnosis, the stage of the disease is based on the level of kidney function: Stage Description GFR(mL/min/1.73 m(2)) 1 Kidney damage with normal or decreased GFR 90 2 Kidney damage with mild decrease in GFR 60-89 3 Moderate decrease in GFR 30-59 4 Severe decrease in GFR 15-29 5 Kidney failure <15 (or dialysis) 2 Desirable: <150 Borderline High: 150-199 High: 200-499 Very High: >500 3 Desirable: <200 Borderline High: 200-239 High: >239 4 Low: <40 Desirable: 40-60 High: >60 5 Desirable: <100 Near Optimal: 100-129 Borderline High: 130-159 High: 160-189 Very High: >189 6 Total 25-Hydroxyvitamin D2 and D3 (25-OH-VitD) <10 ng/mL (severe deficiency) 10-19 ng/mL (mild to moderate deficiency) 20-50 ng/mL (optimum levels) 51-80 ng/mL (increased risk of hypercalciuria) >80 ng/mL (toxicity possible) 7 Standard intensity warfarin therapeutic range: 2.0-3.0 High intensity warfarin therapeutic range: 2.5-3.5 8 SEE RESULT BELOW Name: MICHAEL PIRES : [address]: Yuri Carroll MD Acct: [id number] Unit: [id number] AGE: 83 Location: [facility] Re10/01/18 SEX: F Status: REG REF SPEC: [id number] INDIGO: 10/01/[address]: Yuri Carroll MD REQ: [id number] RECD: 10/01/18 STATUS: COMP _ SOURCE: URINE SPDESC: ORDERED: Urine Culture Urine Source: Random Procedure Result Reported Site Urine Culture Final 10/02/18- 1205 ML No Growth (<1,000 CFU/mL) * ML - Main Lab . END OF REPORT DEPARTMENT OF PATHOLOGY, [address] [place] [address] Kevin Naik M.D. Director [facility] # [id number] Procedures Date Code Description Status 02/01/2019 30768 EKG Tracing & Interpretation Completed 09/30/2018 84512 ECHO Transthoracic, Real-Time 2D With Doppler And Color Completed Flow 09/28/2018 06721 Pace Maker Eval W/Iterative Adjment Dual Lead Completed 09/28/2018 61627 Pace Maker Eval W/Iterative Adjment Dual Lead Completed 09/28/2018 25158 Stress Test Completed 09/28/2018 99171 Myocardial Perfusion Imaging Tomographic (Spect) Multiple Completed Studies 09/10/2018 12444 EKG Tracing & Interpretation Completed Medical Devices Description No Information Available Encounters Type Date Location Provider Dx Diagnosis Office Visit 12/03/2018 [facility]iology Services Donnie Johns, I50.22 Chronic systolic 8:40a Of [facility] AT [facility] FAC (congestive) heart failure N18.9 Chronic kidney disease, unspecified Z95.0 Presence of cardiac pacemaker I10 Essential (primary) hypertension R55 Syncope and collapse I95.1 Orthostatic hypotension I95.9 Hypotension, unspecified N18.4 Chronic kidney disease, stage 4 (severe) Office Visit 10/05/2018 12:00p [facility] Donnie Quintanilla I50.22 Chronic systolic Of [facility] (congestive) heart FACC failure N18.9 Chronic kidney disease, unspecified Z95.0 Presence of cardiac pacemaker I10 Essential (primary) hypertension R55 Syncope and collapse I95.1 Orthostatic hypotension Office Visit 09/30/2018 [facility] Primary Yuri Z01.818 Encounter for 3:30p Fiordaliza Carroll MD other preprocedural examination Z95.0 Presence of cardiac pacemaker M17.12 Unilateral primary osteoarthritis, left knee N18.9 Chronic kidney disease, unspecified I35.1 Nonrheumatic aortic (valve) insufficiency I65.23 Occlusion and stenosis of bilateral carotid arteries I10 Essential (primary) hypertension Z23 Encounter for immunization F33.1 Major depressive disorder, recurrent, moderate Office Visit 09/10/2018 Cardiology Donnie Quintanilla Z01.810 Encounter for 9:40a Services Of Ramón Johns DO preprocedural AT [facility] cardiovascular examination M17.12 Unilateral primary osteoarthritis, left knee R55 Syncope and collapse N18.9 Chronic kidney disease, unspecified Z95.0 Presence of cardiac pacemaker R07.89 Other chest pain R06.02 Shortness of breath I35.1 Nonrheumatic aortic (valve) insufficiency I65.23 Occlusion and stenosis of bilateral carotid arteries R94.31 Abnormal electrocardiogram [ECG] [EKG] Office Visit 08/20/2018 10:00a [facility] Sandra Carlinke, M25.562 Pain in left at [facility]. knee M25.462 Effusion, left knee M17.12 Unilateral primary osteoarthritis, left knee Assessments Date Code Description Provider 02/01/2019 I50.22 Chronic systolic (congestive) heart Donnie Johns DO [facility] failure 02/01/2019 N18.9 Chronic kidney disease, unspecified Donnie Johns, DO [facility] 02/01/2019 I10 Essential (primary) hypertension Donnie Johns, DO [facility] 02/01/2019 R55 Syncope and collapse Donnie Johns, DO [facility] 12/03/2018 I50.22 Chronic systolic (congestive) heart Donnie Johns, DO [facility] failure 12/03/2018 N18.9 Chronic kidney disease, unspecified Donnie Johns, DO [facility] 12/03/2018 Z95.0 Presence of cardiac pacemaker Donnie Johns DO [facility] 12/03/2018 I10 Essential (primary) hypertension Donnie Johns DO FAC 12/03/2018 R55 Syncope and collapse Donnie Johns, DO [facility] 12/03/2018 I95.1 Orthostatic hypotension Donnie Johns, DO [facility] 12/03/2018 I95.9 Hypotension, unspecified Donnie Johns, DO [facility] 12/03/2018 N18.4 Chronic kidney disease, stage 4 (severe) Donnie Johns, DO FAC 10/05/2018 I50.22 Chronic systolic (congestive) heart Donnie Johns DO FAC failure 10/05/2018 N18.9 Chronic kidney disease, unspecified Donnie Johns, DO FAC 10/05/2018 Z95.0 Presence of cardiac pacemaker Donnie Johns, DO FACC 10/05/2018 I10 Essential (primary) hypertension Donnie Johns, DO FAC 10/05/2018 R55 Syncope and collapse Donnie Johns, DO FAC 10/05/2018 I95.1 Orthostatic hypotension Donnie Johns, DO FAC 09/30/2018 R06.02 Shortness of breath Donnie Johns, DO FAC 09/30/2018 Z01.818 Encounter for other preprocedural Yuri Carroll MD examination 09/30/2018 Z95.0 Presence of cardiac pacemaker Yuri Carroll MD 09/30/2018 M17.12 Unilateral primary osteoarthritis, left Yuri Carroll MD knee 09/30/2018 R06.02 Shortness of breath Traveling ECHO 2 09/30/2018 N18.9 Chronic kidney disease, unspecified Yuri Carroll MD 09/30/2018 I35.1 Nonrheumatic aortic (valve) insufficiency Yuri Carroll MD 09/30/2018 I65.23 Occlusion and stenosis of bilateral Yuri Carroll MD carotid arteries 09/30/2018 I10 Essential (primary) hypertension Yuri Carroll MD 09/30/2018 Z23 Encounter for immunization Yuri Carroll MD 09/30/2018 F33.1 Major depressive disorder, recurrent, Yuri Carroll MD moderate 09/28/2018 Z95.0 Presence of cardiac pacemaker Donnie Johns, DO [facility] 09/28/2018 Z95.0 Presence of cardiac pacemaker Ica Pacer Schedule 09/28/2018 R55 Syncope and collapse Ica Pacer Schedule 09/28/2018 R07.89 Other chest pain Donnie Johns, DO FAC 09/10/2018 Z01.810 Encounter for preprocedural Donnie Johns, DO [facility] cardiovascular examination 09/10/2018 M17.12 Unilateral primary osteoarthritis, left Donnie Johns, DO FACC knee 09/10/2018 R55 Syncope and collapse Donnie Johns, DO FAC 09/10/2018 N18.9 Chronic kidney disease, unspecified Donnie Johns, DO FAC 09/10/2018 Z95.0 Presence of cardiac pacemaker Donnie Johns DO [facility] 09/10/2018 R07.89 Other chest pain Donnie Johns DO [facility] 09/10/2018 R06.02 Shortness of breath Donnie Johns DO [facility] 09/10/2018 I35.1 Nonrheumatic aortic (valve) insufficiency Donnie Johns DO [facility] 09/10/2018 I65.23 Occlusion and stenosis of bilateral Donnie Johns DO [facility] carotid arteries 09/10/2018 R94.31 Abnormal electrocardiogram [ECG] [EKG] Donnie Johns DO [facility] 08/20/2018 M25.562 Pain in left knee Sandra Molina M.D. 08/20/2018 M25.462 Effusion, left knee Sandra Molina M.D. 08/20/2018 M17.12 Unilateral primary osteoarthritis, left Sandra Molina M.D. knee Plan of Treatment 02/01/2019 - Donnie Johns DO FACCI50.22 Chronic systolic (congestive) heart failureFollow up:PRNN18.9 Chronic kidney disease, [id number] Essential ( primary) [id number] Syncope and collapse Functional Status Functional Condition Comment Date Status Pacemaker Active Mental Status Description No Information Available Referrals Refer to Reason for Referral Status Appt Date Donnie Johns DO [facility] Closed 10/05/[address] [place] [address] [phone] Donnie Johns DO, [facility] Patient has a [employer] 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 Surgery for Left Total Knee Replacement 10/12/18 and needs cardiology clearance. [address] [place] [address] [phone]
[2019-03-22 21:22] LABS: Troponin I 0.07 ng/mL (<0.03)
[2019-03-22 21:25] LABS: ABS Lymphocytes 0.7 10^3/ul (1.0-4.8); ABS Monocytes 0.1 10^3/ul (0-0.8); ABS Neutrophils 3.8 10^3/ul (1.5-7.7); Lymphocyte % 14.6 %; Polychromasia 1+
[2019-03-22 21:27] LABS: TSH (Thyroid Stimulating Horm) 5.13 mcIU/mL (0.34-5.60)
[2019-03-23] VITALS: BP 170/108
== END 2019-03-22 23:15 | disposition home or self-care (01) ==
LOC: ED 19:44
DX: R55 Syncope and collapse (principal); R06.02 Shortness of breath; R07.89 Other chest pain; R05 Cough; I44.7 Left bundle-branch block, unspecified; I10 Essential (primary) hypertension; K21.9 Gastro-esophageal reflux disease without esophagitis; Z95.810 Presence of automatic (implantable) cardiac defibrillator; Z86.73 Personal history of transient ischemic attack (TIA), and cerebral infarction without residual deficits; Z88.0 Allergy status to penicillin; Z88.2 Allergy status to sulfonamides; Z82.49 Family history of ischemic heart disease and other diseases of the circulatory system; Z83.3 Family history of diabetes mellitus
CPT/HCPCS: 36415; 71046; 80053; 83605; 83735; 84443; 84484; 85025; 85060; 93005; 96360; 99283

== ENCOUNTER 2021-07-04 06:34 | Inpatient (IN) ==
[~2021-07-04 06:34] MED LIST: Buffered Lidocaine 1% SYRIN 1 ml INTRADERM ONE; Dexamethasone IV 4 MG/ML VIAL 1 ml VIAL IV SLOW PU ONE; Famotidine IV 10 MG/ML 2 ml VIAL (20 mg) IV ONE; Lactated Ringers 1000 ml BAG 1,000 ML IV SCH
[2021-07-04] MEDS ORDERED: Propofol 10 MG/ML 20 ML BTL ONE (06:54)
[2021-07-04] MEDS ORDERED: Rocuronium 50 mg VIAL 10 mg/ml 5 ml VIAL (50 mg) ONE (06:54)
[2021-07-04] MEDS ORDERED: Ondansetron 4 mg VIAL 2 MG/ML 2 ml VIAL ONE (06:54)
[2021-07-04] MEDS ORDERED: Dexamethasone IV 4 MG/ML VIAL 1 ml VIAL ONE ×2 (06:54→07:44)
[2021-07-04] MEDS ORDERED: fentaNYL 100 mcg/2 ml 50 MCG/ML VIAL ONE (06:54)
[2021-07-04] MEDS ORDERED: Phenylephrine IV 10 MG/ML 1 ml VIAL ONE (06:54)
[2021-07-04] MEDS ORDERED: Lidocaine 2% PF 5 ML VIAL ONE (06:54)
[2021-07-04] MEDS ORDERED: Midazolam 2 mg/2 ml VIAL 1 mg/ml 2 ml VIAL (2 mg) ONE ×2 (06:54→09:54)
[2021-07-04] MEDS ORDERED: Clindamycin 900 MG/D5W BAG 900 MG/50 ML BAG IVPB ONE (07:44)
[2021-07-04] MEDS ORDERED: Famotidine IV 10 MG/ML 2 ml VIAL (20 mg) ONE (07:48)
[2021-07-04 08:12] LABS: Rapid COVID-19 Molecular Undetected (Undetected)
[2021-07-04] MEDS ORDERED: ROPIVACAINE 5 MG/ML 30 ML BTL (0.5%) ONE ×2 (08:14→08:56)
[2021-07-04] MEDS ORDERED: DOPAMINE 800 MG/250 ML CENTR ONE ×2 (08:30)
[2021-07-04] MEDS ORDERED: IVPREM CENTR ONE ×2 (08:30)
[2021-07-04] MEDS ORDERED: Prochlorperazine 5 mg/ml 2 ml VIAL (10 mg) IV PRN (10:15)
[2021-07-04] MEDS ORDERED: Morphine 4 MG/ML VIAL (1 ml) IV PRN (10:15)
[2021-07-04] MEDS ORDERED: fentaNYL 100 mcg/2 ml 50 MCG/ML VIAL IV PRN (10:15)
[2021-07-04] MEDS ORDERED: Naloxone 0.4 mg VIAL 0.4 mg/ml 1 ml VIAL IV PRN (10:15)
[2021-07-04] MEDS ORDERED: Ondansetron 4 mg VIAL 2 MG/ML 2 ml VIAL IV PRN (10:43)
[2021-07-04] MEDS ORDERED: Ondansetron ODT 4 mg TAB 4 MG TAB PO PRN (10:43)
[2021-07-04] MEDS ORDERED: diPHENhydraMINE 25 mg TAB PO PRN (10:43)
[2021-07-04] MEDS ORDERED: Lactulose 30 ml UDC PO PRN (10:43)
[2021-07-04] MEDS ORDERED: Magnesium Hydroxide LIQ 30 ML UDC PO PRN (10:43)
[2021-07-04] MEDS ORDERED: diPHENhydraMINE IV 50 MG/ML 1 ml VIAL (BENADRYL) IV PRN (10:43)
[2021-07-04] MEDS ORDERED: Senna TAB 8.6 mg TAB PO PRN (10:48)
[2021-07-04 11:09] LABS: Albumin 3.8 g/dL (3.2-5.2); Calcium 9.1 mg/dL (8.6-10.3); Potassium 4.9 mmol/L (3.5-5.0); Total Bilirubin 0.4 mg/dL (0.2-1.0)
[2021-07-04 11:15] LABS: Albumin/Globulin Ratio 1.4 (1-3); Globulin 2.8 g/dL (2-4); Total Protein 6.6 g/dL (6.4-8.9); eGFR CKD-EPI 26.7 (>60)
[2021-07-04] MEDS ORDERED: Acetaminophen IV 1 GM/100ML 100 ML IV ONE (11:51)
[2021-07-04] MEDS: Lactated Ringers 1000 ml BAG 1,000 ML IV SCH (14:00)
[2021-07-04] MEDS: Clindamycin 600 MG/D5W BAG 600 MG/50 ML BAG IV SCH (17:32)
[2021-07-04] MEDS: Magnesium Hydroxide LIQ 30 ML UDC PO SCH (20:12)
[2021-07-05] MEDS: Lactated Ringers 1000 ml BAG 1,000 ML IV SCH (01:32)
[2021-07-05] MEDS: Clindamycin 600 MG/D5W BAG 600 MG/50 ML BAG IV SCH ×2 (01:32→09:25)
[2021-07-05 06:39] LABS: Hematocrit 31 % (35-47); Hemoglobin 10.3 g/dL (12.0-16.0); Mean Platelet Volume 9.6 fL (7.4-10.4); Platelet Count 174 10^3/uL (150-450)
[2021-07-05 06:58] LABS: Calcium 8.4 mg/dL (8.6-10.3); eGFR CKD-EPI 24.3 (>60)
[2021-07-05 06:59] LABS: Potassium 5.4 mmol/L (3.5-5.0)
[2021-07-05] MEDS ORDERED: SODIUM ZIRCONIUM CYCLOSILICATE 10 GM PACKET PO ONE (08:53)
[2021-07-05] MEDS: Magnesium Hydroxide LIQ 30 ML UDC PO SCH ×2 (09:26→21:50)
[2021-07-05] MEDS: Vitamin THERAPEUTIC TAB PO SCH (09:27)
[2021-07-05] MEDS: Venlafaxine XR 75 mg PO SCH (09:27)
[2021-07-05 15:54] LABS: Calcium 7.9 mg/dL (8.6-10.3); eGFR CKD-EPI 22.8 (>60)
[2021-07-05 15:59] LABS: Potassium 5.2 mmol/L (3.5-5.0)
[2021-07-05 19:37] LABS: High Sensitivity Troponin 1 Hr 39 pg/mL (<15)
[2021-07-05] MEDS: Senna TAB 8.6 mg TAB PO SCH (21:51)
[2021-07-06 08:03] LABS: Hematocrit 29 % (35-47); Hemoglobin 9.4 g/dL (12.0-16.0); Mean Platelet Volume 9.3 fL (7.4-10.4); Platelet Count 177 10^3/uL (150-450)
[2021-07-06] MEDS: Magnesium Hydroxide LIQ 30 ML UDC PO SCH ×2 (08:07→20:35)
[2021-07-06] MEDS: Venlafaxine XR 75 mg PO SCH (08:08)
[2021-07-06] MEDS: Vitamin THERAPEUTIC TAB PO SCH (08:08)
[2021-07-06 09:03] LABS: Calcium 8.1 mg/dL (8.6-10.3); eGFR CKD-EPI 21.7 (>60)
[2021-07-06 09:05] LABS: Potassium 5.2 mmol/L (3.5-5.0)
[2021-07-06] MEDS ORDERED: Furosemide 20 mg/2 ml IV VIAL IV ONE (09:50)
[2021-07-06] MEDS ORDERED: SODIUM ZIRCONIUM CYCLOSILICATE 10 GM PACKET PO ONE (09:50)
[2021-07-06 15:40] LABS: Potassium 4.7 mmol/L (3.5-5.0); eGFR CKD-EPI 20.8 (>60)
[2021-07-06] MEDS: Senna TAB 8.6 mg TAB PO SCH (20:35)
[2021-07-07 06:14] LABS: Hematocrit 28 % (35-47); Hemoglobin 9.2 g/dL (12.0-16.0); Mean Platelet Volume 9.8 fL (7.4-10.4); Platelet Count 186 10^3/uL (150-450)
[2021-07-07 06:30] LABS: Calcium 8.5 mg/dL (8.6-10.3); eGFR CKD-EPI 21.8 (>60)
[2021-07-07 06:34] LABS: Potassium 5.2 mmol/L (3.5-5.0)
[2021-07-07] MEDS: Vitamin THERAPEUTIC TAB PO SCH (10:20)
[2021-07-07] MEDS: Venlafaxine XR 75 mg PO SCH (10:21)
[2021-07-07] MEDS: Senna TAB 8.6 mg TAB PO SCH (20:55)
[2021-07-08 06:25] LABS: Hematocrit 31 % (35-47); Hemoglobin 9.8 g/dL (12.0-16.0); Mean Platelet Volume 9.6 fL (7.4-10.4); Platelet Count 212 10^3/uL (150-450)
[2021-07-08 06:44] LABS: Calcium 8.5 mg/dL (8.6-10.3); eGFR CKD-EPI 20.3 (>60)
[2021-07-08 06:51] LABS: Potassium 5.2 mmol/L (3.5-5.0)
[2021-07-08] MEDS: Venlafaxine XR 75 mg PO SCH (08:13)
[2021-07-08] MEDS: Vitamin THERAPEUTIC TAB PO SCH (08:13)
[2021-07-08 11:18] LABS: Rapid COVID-19 Molecular Undetected (Undetected)
[2021-07-08] MEDS: Senna TAB 8.6 mg TAB PO SCH (21:31)
[2021-07-09 05:58] LABS: Hematocrit 29 % (35-47); Hemoglobin 9.5 g/dL (12.0-16.0); Platelet Count 231 10^3/uL (150-450)
[2021-07-09 06:42] LABS: Calcium 8.3 mg/dL (8.6-10.3); Potassium 4.7 mmol/L (3.5-5.0)
[2021-07-09 06:43] LABS: eGFR CKD-EPI 21.4 (>60)
[2021-07-09] MEDS: Venlafaxine XR 75 mg PO SCH (08:54)
[2021-07-09] MEDS: Vitamin THERAPEUTIC TAB PO SCH (08:54)
[2021-07-09 13:15] VITALS: BP 107/72
== END 2021-07-09 15:10 | DRG 470 ==
LOC: AA 06:34 → SSU 14:00
PROVIDERS: ADMIT Orthopaedic Surgery Adult Reconstructive Orthopaedic Surgery; ATTEND Orthopaedic Surgery Adult Reconstructive Orthopaedic Surgery